=== PATIENT | male | born 1975 | race Two or more races ===

== ENCOUNTER 2017-07-22 13:57 | Emergency (ER) | payer SELFPAY ==
[~2017-07-22] VITALS: Ht 172.7 cm; Wt 104.3 kg
[2017-07-22 14:56] VITALS: BP 150/96
[2017-07-22] MEDS ORDERED: TETANUS-DIPTH-ACEL PERTUSSIS 0.5ML SYRG IM ONE (15:15)
[2017-07-22] MEDS ORDERED: NEOMYCIN-BACITRACIN-POLYM UNITDOSE PKG TOP OINT TOP ONE (15:45)
== END 2017-07-22 16:04 | disposition home or self-care (01) ==
LOC: ER 13:57
DX: S62.637A Displaced fracture of distal phalanx of left little finger, initial encounter for closed fracture (principal); S61.211A Laceration without foreign body of left index finger without damage to nail, initial encounter; S61.307A Unspecified open wound of left little finger with damage to nail, initial encounter; W23.0XXA Caught, crushed, jammed, or pinched between moving objects, initial encounter; Y93.89 Activity, other specified; Y92.89 Other specified places as the place of occurrence of the external cause; Y99.8 Other external cause status
CPT/HCPCS: 12002; 29130; 73130; 90471; 90715

== ENCOUNTER 2017-07-29 11:06 | Emergency (ER) | payer SELFPAY ==
[~2017-07-29] VITALS: Ht 172.7 cm; Wt 104.3 kg
[2017-07-29 12:12] VITALS: BP 158/93
== END 2017-07-29 12:24 | disposition home or self-care (01) ==
LOC: ER 11:06
DX: S61.211D Laceration without foreign body of left index finger without damage to nail, subsequent encounter (principal); X58.XXXD Exposure to other specified factors, subsequent encounter